=== PATIENT | male | born 1975 | race African-American/Black ===

== ENCOUNTER 2017-04-13 07:07 | Inpatient (IN) | payer OTHER ==
[~2017-04-13] VITALS: Ht 193 cm; Wt 92.0 kg
[2017-04-13] VITALS (17 sets, daily range): BP systolic 97–127; BP diastolic 56–85; PULSE 48–89; RESP 15–28; Ht 193 cm; Wt 92.0 kg
[2017-04-13] MEDS ORDERED: HYDR-906 PO (08:00)
[2017-04-13] MEDS ORDERED: HYDR-902 PO (08:02)
[2017-04-13] MEDS: D5W-0.45 NACL + KCL 20 MEQ 1,000 ML IV SCH ×2 (09:10→14:00)
--- NOTE | 2017-04-13 09:10 | HPN ---
Date/Time of Note Date/Time of Note DATE: 04/13/17 TIME: 09:10 Interval H&P Admission Note Pt. seen H&P reviewed: No system changes FAISAL MARTINS PA-C Apr 13, 2017 09:10
[2017-04-13] MEDS ORDERED: SURGIFOAM POWDER 1 GM KIT ONE (09:22)
[2017-04-13] MEDS ORDERED: BUPIVACAINE 0.25% (MPF) 30 ML INJ ONE (09:23)
[2017-04-13] MEDS ORDERED: THROMBIN 5000 UNIT VIAL ONE (09:23)
[2017-04-13] MEDS ORDERED: CA CHLORIDE 10% 10 ML SYRINGE ONE (09:23)
[2017-04-13] MEDS ORDERED: POLYMYXIN/BACITRACIN 1L IRRIG ONE (09:23)
[2017-04-13] MEDS ORDERED: BUPIVACAINE 0.25%/EPI (SDV) 30 ML INJ ONE (09:23)
[2017-04-13] MEDS ORDERED: HYDROCODONE/APAP (10/325) TAB PO PRN ×2 (09:30)
[2017-04-13] MEDS ORDERED: AL HYDROX/MG HYDROX/SIMETH 30 ML CUP PO PRN (09:30)
[2017-04-13] MEDS ORDERED: NALOXONE (0.4 MG/ML) INJ IV PRN (09:30)
[2017-04-13] MEDS ORDERED: HYDROmorphONE 0.2 MG/ML PCA IV SCH (09:30)
[2017-04-13] MEDS ORDERED: CEPASTAT LOZENGE MT PRN (09:30)
[2017-04-13] MEDS ORDERED: HYDROmorphONE 1 MG/ML SYG IV PRN (09:30)
[2017-04-13] MEDS ORDERED: ZOLPIDEM 5 MG TAB PO PRN (09:30)
[2017-04-13] MEDS ORDERED: ACETAMINOPHEN 325 MG TAB PO PRN (09:30)
[2017-04-13] MEDS ORDERED: ONDANSETRON 4 MG INJ IV PRN ×2 (09:30→12:00)
[2017-04-13] MEDS ORDERED: DIPHENHYDRAMINE 50 MG INJ IV PRN ×2 (09:30→12:00)
[2017-04-13] MEDS ORDERED: BISACODYL 10 MG SUPP PR PRN (09:30)
[2017-04-13] MEDS ORDERED: CEFAZOLIN 1 GM INJ ONE (09:34)
[2017-04-13] MEDS ORDERED: ROCURONIUM 50 MG INJ ONE (09:34)
[2017-04-13] MEDS ORDERED: LIDOCAINE 2% (SDV) 5 ML INJ ONE (09:34)
[2017-04-13] MEDS ORDERED: PROPOFOL 20 ML ONE (09:34)
[2017-04-13] MEDS ORDERED: FENTAnyl 50 MCG/ML VIAL ONE ×2 (09:35→10:23)
[2017-04-13] MEDS ORDERED: morphine 10 MG INJ ONE (10:03)
[2017-04-13] MEDS ORDERED: LABETALOL HCL 20MG INJ ONE (10:07)
[2017-04-13] MEDS ORDERED: POLYMYXIN/BACITRACIN 1L IRRIG IRR ONE (10:11)
[2017-04-13] MEDS ORDERED: THROMBIN 5000 UNIT VIAL TOP ONE (10:11)
[2017-04-13] MEDS ORDERED: BUPIVACAINE 0.25%/EPI (SDV) 30 ML INJ INJ ONE (10:11)
--- NOTE | 2017-04-13 10:54 | RADRPT ---
PROCEDURE: XR lumbar spine CLINICAL INDICATION: LEFT L4-L5 MICRODISCECTOMY TECHNIQUE: Cross-table lateral radiograph of the lumbar spine obtained COMPARISON: None available FINDINGS: [place] present in the posterior soft tissues at the L4, lower L5 levels. There is preservation of the lumbar lordosis. Vertebral bodies are maintained in height. Mild anterior osteophytes at L3-4, L4-5 and mild disk space narrowing at L4-5 and L5-S1 are visualized. IMPRESSION: Posterior needle localization at L4, L5. Mild lumbar spondylosis/degenerative enthesopathy. RPTAT: VV .Dirk Montoya MD, Date Time Electronically viewed and signed by .Dirk Montoya MD, on 04/13/2017 10:53 .O/
[2017-04-13] MEDS ORDERED: DEXAMETHASONE 4 MG/ML 1 ML INJ ONE (11:10)
[2017-04-13] MEDS ORDERED: ONDANSETRON 4 MG INJ ONE (11:11)
[2017-04-13] MEDS ORDERED: GLYCOPYRROLATE 1 MG INJ ONE (11:12)
[2017-04-13] MEDS ORDERED: NEOSTIGMINE 3 MG/3 ML SYRINGE ONE (11:12)
--- NOTE | 2017-04-13 11:19 | OPR ---
Date/Time of Note Date/Time of Note DATE: 04/13/17 TIME: 11:19 Operative Report Preoperative Diagnosis left L4-5 HNP Postoperative Diagnosis left L4-5 HNP Operation/Procedure Performed left L4-5 discectomy Surgeon: RYLAND ERNST MD clinical project assistant: FAISAL MARTINS PA-C Anesthesia: general Estimated Blood Loss: 10 - 50 ml's Specimens left L4-5 disk RYLAND ERNST MD Apr 13, 2017 11:19
[2017-04-13] MEDS ORDERED: HYDROmorphONE (0.2 MG/ML) 10ML SYG IV ONE (11:36)
[2017-04-13] MEDS ORDERED: MIDAZOLAM 1 MG/ML 2 ML INJ ONE (11:43)
[2017-04-13] MEDS ORDERED: EPHEDrine SULFATE 50 MG/5 ML SYG IV PRN (12:00)
[2017-04-13] MEDS ORDERED: HYDROmorphONE (0.2 MG/ML) 10ML SYG IV PRN ×3 (12:00)
[2017-04-13] MEDS ORDERED: FENTAnyl 50 MCG/ML VIAL IV PRN ×3 (12:00)
[2017-04-13] MEDS ORDERED: MEPERIDINE 25 MG INJ IV PRN (12:00)
[2017-04-13] MEDS ORDERED: LABETALOL HCL 20MG INJ IV PRN (12:00)
[2017-04-13] MEDS ORDERED: hydrALAzine 20 MG INJ IV PRN (12:00)
[2017-04-13] MEDS ORDERED: MIDAZOLAM 1 MG/ML 2 ML INJ IV PRN (12:00)
[2017-04-13] MEDS ORDERED: METOCLOPRAMIDE 10 MG INJ IV PRN (12:00)
[2017-04-13] MEDS ORDERED: OXYCODONE/ACETAMINOPHEN (5/325) TAB PO PRN ×2 (12:00)
[2017-04-13] MEDS: CEFAZOLIN 1 GM/50 ML (PMX) 50 ML IVPB SCH ×2 (14:00→19:20)
[2017-04-13] MEDS: DOCUSATE SODIUM 100 MG CAP PO SCH (21:14)
[2017-04-14 00:40] VITALS: BP 133/60; RESP 18
[2017-04-14] MEDS: CEFAZOLIN 1 GM/50 ML (PMX) 50 ML IVPB SCH (00:57)
[2017-04-14] MEDS: D5W-0.45 NACL + KCL 20 MEQ 1,000 ML IV SCH ×2 (00:57→15:10)
[2017-04-14 05:34] LABS: ABNORMAL IP MESSAGE 1; HEMATOCRIT 40.1 % (42.0-52.0); HEMOGLOBIN 13.5 g/dl (14.0-18.0); LYMPHOCYTES # 1.1 10^3/ul (0.8-2.9); LYMPHOCYTES % 5.2 % (15.0-51.0); MEAN CORPUSCULAR HEMOGLOBIN 27.6 pg (29.0-33.0); MEAN CORPUSCULAR HGB CONC 33.7 g/dl (32.0-37.0); MEAN CORPUSCULAR VOLUME 81.8 fl (82.0-101.0); MEAN PLATELET VOLUME 9.4 fl (7.4-10.4); MONOCYTE # 1.9 10^3/ul (0.3-0.9); MONOCYTES % 8.9 % (0.0-11.0); NEUTROPHILS % 85.1 % (39.0-77.0); PLATELET COUNT 249 10^3/UL (140-415); POSITIVE DIFF @See below; RED CELL DISTRIBUTION WIDTH 13.1 % (11.5-14.5); WHITE BLOOD COUNT 21.1 10^3/ul (4.8-10.8)
--- NOTE | 2017-04-14 06:09 | OPR ---
DATE OF OPERATION: 04/13/2017 PREOPERATIVE DIAGNOSES: 1. Left L4-5 disc herniation. 2. Left lumbar radiculopathy. POSTOPERATIVE DIAGNOSES: 1. Left L4-5 disc herniation. 2. Left lumbar radiculopathy. OPERATION PERFORMED: 1. Left L4-5 hemilaminotomy, partial medial facetectomy, and foraminotomy. 2. Left L4-5 lumbar microdiskectomy. 3. Lateral localizing film x2. 4. Use of C-arm fluoroscopy with interpretation without radiologist present. 5. Intraoperative neural monitoring (1 hour). PRIMARY SURGEON: Messi Burns MD. LOFT WORKER PILE DRIVING: Jessica Eaton PA-C. NEED FOR NURSE LICENSED PRACTICAL: actuarial assistant was required to retract the neurovascular elements. FINDINGS: Neural monitoring at the start of the case revealed left L4 amplitude down 30 percent, left L5 down 50 percent. At the end of the case, nerve signals returned to normal. Patient had left-sided herniation at L4-5. ESTIMATED BLOOD LOSS: Less than 30 cc. DRAINS: None. SPECIMEN: Disks were sent to pathology. COMPLICATIONS: None. ANESTHESIOLOGIST: Dr. Camarillo. ANESTHESIA: General. INDICATION FOR PROCEDURE: This is a 42-year-old gentleman with left lumbosacral radiculopathy in the setting of a disk herniation L4-5 on the left. He has failed nonoperative measures, therefore, recommended proceeding with the abovementioned surgery. Preoperatively, we discussed risks, benefits, alternatives, he understood, wished to proceed. OPERATIVE PROCEDURE: The patient was identified preoperatively in the holding area, given Ancef antibiotics in the operating room table, where he was successfully placed under general anesthesia. Neural monitors were placed. Sequential compressive devices were applied. Neural monitoring was utilized during the procedure for 1 hour to include SSEP, MEP, and EMG. This was performed by [employer]. Start time was 10:10 a.m., closure time was 11:15 a.m. The patient was placed on the operating room table, properly positioned on a Daniel frame. All bony prominences were well padded. The back was then prepped and draped in usual sterile fashion. He had severe limitation of left shoulder, but I was able to position this. Spine needles were placed and a lateral localizing film was obtained to confirm the correct levels. Once this was confirmed, I injected the paraspinal musculature with 0.25 percent Marcaine and epinephrine. Incision was then made over the L4-5 level. Incision was taken down to the dorsal fascia which was incised with Bovie cautery. I then subperiosteally dissected the left L4 lamina. Lita retractor was placed. Kerrisons placed in what was felt to be the L4 lamina. Repeat lateral films obtained to confirm the correct levels. Once this was confirmed, microscope was brought in and a left-sided hemilaminotomy, partial medial facetectomy, foraminotomy were performed. The ligamentum flavum, which was thick, was sharply dissected. I then identified the neural elements in my pharmacy technician assistant retracted this medially. I identified the annulus, made annulotomy and removed the extruded fragments. Once this was done, all nerve signals returned to normal. I irrigated this, especially in the wound. Valsalva maneuver was performed and there was no leak of CSF. Hemostasis was achieved with bipolar cautery and Surgifoam. The wound was dry, and therefore, elected not to place a drain. I passed an epidural catheter through which I injected 100 mcg of fentanyl. TPP was then injected over the dura for hemostatic purposes. Retractors removed and I closed the fascia with a #1 Vicryl stitch. I closed the subcutaneous tissue with 2-0 Vicryl stitch. Microscope was taken off the field and a 4-0 Monocryl closure was then performed. Dermabond was then applied. The patient was then awakened from anesthesia, and taken to the recovery room in stable condition. Lap, sponge, instrument counts correct x2. There were no apparent complications during the procedure. The patient will be admitted to [facility] for routine postoperative care to include pain control, neurovascular checks, antibiotics and physical therapy. The patient reported left shoulder pain in the recovery room. It is expected due to the positioning. We will treat this with anti- inflammatory medications. Dictated By: Messi Burns MD /gil/estela /Document#: [id number] PARO
--- NOTE | 2017-04-14 06:14 | CONS ---
DATE OF ADMISSION: 04/13/2017 DATE OF CONSULTATION: 04/13/2017 Thank you very much for allowing me to evaluate this 42-year-old male who just underwent low back surgery. HISTORICAL EVENTS: As you well know, the patient was last evaluated by you on December 14 having received 6 months of treatment for low back pain including epidural injection, which did not allow improvement of the latter, as well as pain involving the left leg radiating to his foot. Because of the latter, he elected to proceed with surgery. In recovery, he admits to some mild back pain but denies cough, wheezing, shortness of breath, nausea, vomiting, abdominal or chest pain. PAST MEDICAL HISTORY: Unremarkable except for hyperlipidemia. No history of heart disease, hypertension. SOCIAL HISTORY: He is a smoker. FAMILY HISTORY: To be reviewed later. ALLERGIES: NONE. PHYSICAL EXAMINATION: GENERAL: [place] male, no acute distress. VITAL SIGNS: BP 122/80, pulse 70, respirations were 20. He was afebrile. HEENT: Eyes: Extraocular muscles were full. Nose, mouth, throat normal. NECK: Supple. There was no jugular venous distention, thyroid enlargement, adenopathy. LUNGS: Clear. HEART: Rhythm regular. No murmur. No 3rd or 4th sound. ABDOMEN: Nontender. Liver and spleen were not palpable. No mass or tenderness were noted. EXTREMITIES: No edema. Calves nontender. Pulses 2+. NEUROLOGIC: No lateralizing motor weakness. IMPRESSION: 1. Stable postop lumbar back surgery (microdiscectomy). 2. History of hyperlipidemia without history of coronary disease. PLAN: We will evaluate daily for signs and symptoms of thromboembolic disease. I will seen him daily. We will follow him daily with you. Dictated By: Pranav Lees MD /gil/estela /Document#: [id number]
[2017-04-14 06:28] LABS: CALCIUM 9.1 mg/dl (8.4-10.2); CREATININE 0.9 mg/dl (0.61-1.24); MAGNESIUM 1.7 mg/dl (1.7-2.5); POTASSIUM 4.2 mmol/L (3.5-5.1)
[2017-04-14 07:59] VITALS: BP 106/65; RESP 16
--- NOTE | 2017-04-14 08:28 | CONS ---
Date/Time of Note Date/Time of Note DATE: 04/14/17 TIME: 08:27 Assessment/Plan Assessment/Plan Additional Assessment/Plan 1. Doing well post op lumbar back surgery 2. Elevated wbc prob sec to decadron, urine and blood cult obtained and cxr Consultation Date/Type/Reason Admit Date/Time Apr 13, 2017 at 07:07 Initial Consult Date Detailed Summary Respiratory: No cough, No shortness of breath Cardiovascular: No chest pain Gastrointestinal: no complaints Genitourinary: no complaints Musculoskeletal: back pain (mild to mod) Exam/Review of Systems Vital Signs Vitals Vital Signs Date Time Temp Pulse Resp B/P Pulse Ox O2 Delivery O2 Flow Rate FiO2 04/14/17 07:59 98.3 73 16 106/65 99 04/13/17 12:42 Room Air Intake and Output 04/13/17 04/13/17 04/14/17 15:00 23:00 07:00 Intake Total 1100 ml 230 ml 1750 ml Output Total 20 ml 200 ml 1500 ml Balance 1080 ml 30 ml 250 ml Exam Neck: No jvd Respiratory: clear to auscultation Cardiovascular: regular rate and rhythm Gastrointestinal: soft Extremities: No edema (and no calf tend) Results Result Diagram: 04/14/17 0451 04/14/17 0451 Results 24 hrs Laboratory Tests Test 04/14/17 04:51 White Blood Count 21.1 H Red Blood Count 4.90 Hemoglobin 13.5 L Hematocrit 40.1 L Mean Corpuscular Volume 81.8 L Mean Corpuscular Hemoglobin 27.6 L Mean Corpuscular Hemoglobin Concent 33.7 Red Cell Distribution Width 13.1 Platelet Count 249 Mean Platelet Volume 9.4 Neutrophils % 85.1 H Lymphocytes % 5.2 L Monocytes % 8.9 Eosinophils % 0.0 Basophils % 0.0 Nucleated Red Blood Cells % 0.0 Neutrophils # 18.0 H Lymphocytes # 1.1 Monocytes # 1.9 H Eosinophils # 0.0 Basophils # 0.0 Nucleated Red Blood Cells # 0.0 Sodium Level 144 Potassium Level 4.2 Chloride Level 103 Carbon Dioxide Level 26 Anion Gap 19 H Blood Urea Nitrogen 11 Creatinine 0.90 Glucose Level 111 Calcium Level 9.1 Magnesium Level 1.7 Medications Medications Current Medications Potassium Chloride/Dextrose/ Sod Cl (D5-1/2ns + KCl 20 Meq) 1,000 ml @ 100 mls/ hr Q10H IV Last administered on 04/14/17 00:57; Admin Dose 100 MLS/HR; Start at 09:10 Acetaminophen/ Hydrocodone Bitart ([place] (10/325)) 1 tab Q4H PRN PO PAIN LEVEL 1-5; Start 04/13/17 at 09:30 Acetaminophen/ Hydrocodone Bitart ([place] (10/325)) 2 tab Q4H PRN PO PAIN LEVEL 6-10; Start 04/13/17 at 09:30 Hydromorphone HCl (Dilaudid) 0.2 mg Q1H PRN IV BREAKTHROUGH PAIN Last administered on 04/13/17 11:38; Admin Dose 0.2 MG; Start 04/13/17 at 09:30 Ondansetron HCl (Zofran Inj) 4 mg Q6H PRN IV NAUSEA AND/OR VOMITING; Start 04/13 at 09:30 Bisacodyl (Dulcolax Supp) 10 mg DAILY PRN AR CONSTIPATION; Start 04/13/17 at 09: 30 Docusate Sodium (Colace) 100 mg BID PO Last administered on 04/13/17 21:14; Admin Dose 100 MG; Start 04/13/17 at 21:00 Al Hydrox/Mg Hydrox/Simethicone (Mag-Al Plus) 15 ml Q6H PRN PO CONSTIPATION/ DYSPEPSIA; Start 04/13/17 at 09:30 Acetaminophen (Tylenol Tab) 650 mg Q4H PRN PO HENDRICKS OR TEMP GREATER THAN 101.3F; Start 04/13/17 at 09:30 Cyclobenzaprine HCl (Flexeril) 10 mg TID PRN PO MUSCLE SPASMS; Start 04/13/17 at 09:30 Phenol (Cepastat Lozenge) 1 lozenge PRN PRN MT SORE THROAT; Start 04/13/17 at 09 :30 Diphenhydramine HCl (Benadryl) 25 mg Q6H PRN IV ITCHING; Start 04/13/17 at 09:30 Naloxone HCl (Narcan) 0.2 mg Q2M PRN IV RR 8 BREATHS/MIN OR LESS; Start at 09:30 Hydromorphone HCl (Dilaudid WEATHER FORECASTER) WEATHER FORECASTER to be started in PACU Q4PCA IV Last administered on 8/1/17at 11:31; Admin Dose 6 MG; Start 04/13/17 at 09:30 Miscellaneous Information 1. Hold WEATHER FORECASTER at 1,000... WEATHER FORECASTER IV ; Start 04/13/17 at 09: 30 RUFINA FAN MD Apr 14, 2017 08:28
[2017-04-14] MEDS: DOCUSATE SODIUM 100 MG CAP PO SCH (09:28)
--- NOTE | 2017-04-14 10:11 | RADRPT ---
PROCEDURE: XR Chest. CLINICAL INDICATION: elev wbc TECHNIQUE: Single frontal view of the chest was obtained COMPARISON: None FINDINGS: The heart and mediastinum are within normal limits. The lungs are clear. There is no pleural effusion or pneumothorax. The osseous structures, as visualized, are unremarkable. IMPRESSION: No acute disease. RPTAT: EE Physician Chet Date Time Electronically viewed and signed by Tessa Morales Physician on 04/14/2017 10:11 RC/
[2017-04-14] MEDS: CYCLOBENZAPRINE 10 MG TAB PO PRN ×2 (11:45→17:19)
--- NOTE | 2017-04-14 12:43 | DS ---
Date/Time of Note Date/Time of Note DATE: 04/14/17 TIME: 12:42 Discharge Summary Admission/Discharge Info Admit Date/Time Apr 13, 2017 at 07:07 Discharge Date/Time Apr 14 Discharge Diagnosis lumbar discectomy Patient Condition: Good Hospital Course the patient was admitted to the [facility] after undergoing a left L4-5 discectomy on April 13. His post-op course was uncomplicated. By post-op Day 1 he was deemed stable for d/c with follow-up arranged with the undersigned. Home Meds Reported Medications Hydrocodone/Acetaminophen ([place] 10-325 Tablet) 1 Each Tablet, 1 EACH PO Q6 Y for SEVERE PAIN LEVEL 7-10, TAB 04/13/17 Primary Care Provider Messi Burns MD Pending Labs Laboratory Tests Test 04/14/17 04:51 White Blood Count 21.110^3/ul (4.8-10.8) Red Blood Count 4.9010^6/ul (4.70-6.10) Hemoglobin 13.5g/dl (14.0-18.0) Hematocrit 40.1% (42.0-52.0) Mean Corpuscular Volume 81.8fl (82.0-101.0) Mean Corpuscular Hemoglobin 27.6pg (29.0-33.0) Mean Corpuscular Hemoglobin Concent 33.7g/dl (32.0-37.0) Red Cell Distribution Width 13.1% (11.5-14.5) Platelet Count 93753^3/UL (140-415) Mean Platelet Volume 9.4fl (7.4-10.4) Neutrophils % 85.1% (39.0-77.0) Lymphocytes % 5.2% (15.0-51.0) Monocytes % 8.9% (0.0-11.0) Eosinophils % 0.0% (0.0-7.0) Basophils % 0.0% (0.0-2.0) Nucleated Red Blood Cells % 0.0/100WBC (0.0-0.0) Neutrophils # 18.010^3/ul (1.6-7.5) Lymphocytes # 1.110^3/ul (0.8-2.9) Monocytes # 1.910^3/ul (0.3-0.9) Eosinophils # 0.010^3/ul (0.0-0.5) Basophils # 0.010^3/ul (0.0-0.1) Nucleated Red Blood Cells # 0.010^3/ul (0.0-0.0) Sodium Level 144mmol/L (135-144) Potassium Level 4.2mmol/L (3.5-5.1) Chloride Level 103mmol/L (97-110) Carbon Dioxide Level 26mmol/L (21-31) Anion Gap 19 (8-16) Blood Urea Nitrogen 11mg/dl (7-20) Creatinine 0.90mg/dl (0.61-1.24) Glucose Level 111mg/dl (70-220) Calcium Level 9.1mg/dl (8.4-10.2) Magnesium Level 1.7mg/dl (1.7-2.5) MESSI BURNS MD Apr 14, 2017 12:43
[2017-04-14 15:20] VITALS: BP 122/68; RESP 16
[2017-04-14 19:26] LABS: ADD UMIC YES; UR ASCORBIC ACID NEGATIVE (NEGATIVE); UR BILIRUBIN (Dip) NEGATIVE (NEGATIVE); UR BLOOD (Dip) 1+ mg/dL (NEGATIVE); UR CLARITY CLEAR (CLEAR); UR COLOR YELLOW (YELLOW); UR GLUCOSE (Dip) NEGATIVE (NEGATIVE); UR KETONES (Dip) TRACE mg/dL (NEGATIVE); UR LEUKOCYTE ESTERASE (Dip) NEGATIVE Leu/ul (NEGATIVE); UR NITRITE (Dip) NEGATIVE (NEGATIVE); UR RBC 0 /HPF (0-5); UR SPECIFIC GRAVITY (Dip) 1.011 (1.003-1.030); UR TOTAL PROTEIN (Dip) NEGATIVE (NEGATIVE); UR UROBILINOGEN (Dip) NEGATIVE (NEGATIVE)
== END 2017-04-14 17:47 | disposition home or self-care (01) | DRG 520 ==
LOC: REC 07:07 → MS1 13:07
PROVIDERS: ADMIT Specialist; ATTEND Specialist
PROC: 01NB0ZZ Release Lumbar Nerve, Open Approach (ICD-10-PCS; 2017-04-13)
PROC: 0SB20ZZ Excision of Lumbar Vertebral Disc, Open Approach (ICD-10-PCS; principal; 2017-04-13 07:00)
DX: M51.16 Intervertebral disc disorders with radiculopathy, lumbar region (principal); E78.5 Hyperlipidemia, unspecified; F17.210 Nicotine dependence, cigarettes, uncomplicated
CPT/HCPCS: 71010; 72020; 80048; 81001; 83735; 85025; 86999; 87040; 87086; 97116; 97530; J0690; J1100; J1170; J2250; J2270; J2405; J2710; J3010; J3480